=== PATIENT | female | born 1965 | race Caucasian/White ===

== ENCOUNTER 2017-01-22 08:55 | Day surgery (SDC) | payer OTHER ==
[~2017-01-22 08:55] MED LIST: Lactated Ringers 1,000 ML IV SCH; Sodium Chloride 0.9% 10 ML Syringe FLUSH PRN; Sodium Chloride 0.9% 2.5 ML Syringe FLUSH PRN
--- NOTE | 2017-01-22 10:22 | PCM.PREANE ---
Preanesthetic Assessment - Anesthesia/Transfusion/Family Hx Anesthesia History: Prior Anesthesia Without Reaction Family History of Anesthesia Reaction: No Transfusion History: No Prior Transfusion(s) Intubation History: Unknown - Review of Systems General: No Symptoms Pulmonary: No Symptoms Cardiovascular: No Symptoms Gastrointestinal: Other (acid reflux) Neurological: No Symptoms Other: Reports: None - Physical Assessment O2 Sat by Pulse Oximetry: 97 Respiratory Rate: 16 Vital Signs: Last Vital Signs Temp 36.5 C 01/22/17 09:15 Pulse 69 01/22/17 09:15 Resp 16 01/22/17 09:15 BP 145/73 H 01/22/17 09:15 Pulse Ox 97 01/22/17 09:15 Height: 1.63 m Weight: 101.605 kg ASA Class: 2 Mental Status: Alert & Oriented x3 Airway Class: Mallampati = 2 Dentition: Reports: Normal Dentition, Broken Tooth/Teeth (small chips front upper teeth) - Allergies Allergies/Adverse Reactions: Allergies Allergy/AdvReac Type Severity Reaction Status Date / Time No Known Allergies Allergy Verified 10/25/13 08:12 - Blood Blood Available: No - Anesthesia Plan Pre-Op Medication Ordered: None Beta Sonia: Metoprolol Med Last Dose Date: 01/21/17 Med Last Dose Time: 19:00 - Acknowledgements Anesthesia Type Planned: MAC Pt an Appropriate Candidate for the Planned Anesthesia: Yes Alternatives and Risks of Anesthesia Discussed w Pt/Guardian: Yes Pt/Guardian Understands and Agrees with Anesthesia Plan: Yes PreAnesthesia Questionnaire HEENT History: Reports: Other (See Below) Other HEENT History: wears glasses Cardiovascular History: Reports: High Cholesterol, Hypertension Respiratory History: Reports: Other (See Below) Other Respiratory History: "may have sleep apnea" not diagnosed Gastrointestinal History: Reports: GERD SLAT TWISTER History: Reports: Psychiatric History: Reports: Anxiety, Depression Endocrine/Metabolic History: Reports: Obesity/BMI 30+ Hematologic History: Reports: Anemia - Past Surgical History Head Surgeries/Procedures: Reports: None Dermatological Surgical History: Reports: Other (See Below) (bilateral varicose veins stripping (lower extremities)) - SUBSTANCE USE Smoking Status *Q: Former Smoker Recreational Drug Use History: No - HOME MEDS Home Medications: Home Meds Aspirin [Carver Aspirin] 81 mg PO DAILY 01/20/17 [History] Citalopram Hydrobromide [Celexa] 40 mg PO DAILY 01/20/17 [History] Hydrochlorothiazide 25 mg PO DAILY 01/20/17 [History] Iron Polysaccharide Complex [Poly-Iron] 150 mg PO ASDIRECTED 01/20/17 [History] Metoprolol Succinate 50 mg PO BEDTIME 01/20/17 [History] Omeprazole 20 mg PO DAILY 01/20/17 [History] Potassium Chloride 20 meq PO DAILY 01/20/17 [History] Pravastatin Sodium [Pravachol] 20 mg PO DAILY 01/20/17 [History] buPROPion HCl [Wellbutrin Xl] 150 mg PO DAILY 01/20/17 [History] - CURRENT (IN HOUSE) MEDS Current Meds: Current Medications Lactated Ringer's (Ringers, Lactated) 1,000 mls @ 125 mls/hr IV ASDIRECTED [facility] Last Admin: 01/22/17 09:18 Dose: 125 mls/hr Sodium Chloride (Saline Flush) 10 ml FLUSH ASDIRECTED PRN PRN Reason: Keep Vein Open Sodium Chloride (Saline Flush) 2.5 ml FLUSH ASDIRECTED PRN PRN Reason: Keep Vein Open
[2017-01-22] MEDS ORDERED: Ondansetron 4 MG/2 ML SDV ONE (15:12)
[2017-01-22] MEDS ORDERED: Propofol 200 MG/20 ML SDV ONE (15:13)
[2017-01-22] MEDS ORDERED: fentaNYL 100 MCG/2 ML SDV ONE (15:13)
[2017-01-22] MEDS ORDERED: Midazolam 1 MG/ML 2 ML SDV ONE (15:13)
--- NOTE | 2017-01-22 16:30 | PCM.OPNOTE ---
- General Post-Op/Procedure Note Date of Surgery/Procedure: 01/22/17 Operative Procedure(s): Colonoscopy and EGD Findings: Hiatal hernia, gastric polyps. Colon polyp @ 40 cm that was ~5 mm in size. 1 polyp in distal sigmoid, 1 polyp in rectum. Pre Op Diagnosis: Microcytic anemia, gerd Post-Op Diagnosis: See findings Anesthesia Technique: MAC Primary Surgeon: Bryanna Mccray Condition: Good
--- NOTE | 2017-01-22 16:32 | PCM.OPNOTE ---
- General Post-Op/Procedure Note Date of Surgery/Procedure: 01/22/17 Condition: Good
--- NOTE | 2017-01-22 22:16 | OR ---
SURGEON: BRYANNA MCCRAY MD DATE OF PROCEDURE: 01/22/2017 PREOPERATIVE DIAGNOSES: Gastroesophageal reflux disease, iron deficiency anemia. POSTOPERATIVE DIAGNOSES: 1. Hiatal hernia. 2. Gastric polyps. 3. Descending colon polyp. 4. Sigmoid colon polyp. 5. Rectal polyp. PROCEDURE PERFORMED: Diagnostic EGD and colonoscopy. ENDOSCOPIST: Dr. Bryanna Mccray. INSTRUMENT USED: Olympus endoscope and Olympus colonoscope. ANESTHESIA: MAC. EXTENT OF EXAM: To the second portion of duodenum, to the cecum. PREPARATION: Fair. LIMITATIONS: None. INDICATION FOR EXAMINATION: The patient is a 52-year-old female, who has microcytic anemia. She has a longstanding history of GERD, that is well controlled on PPIs. She has never had an EGD or colonoscope. She was seen by her primary care provider for further workup. The patient and I discussed both procedures as well as expected perioperative course. We discussed the risks, including bleeding, infection, or damage to surrounding structures, including perforation. The patient verbalized understanding and wishes to proceed. PROCEDURE IN DETAIL: The patient was brought to the endoscopy suite and placed in a beach chair position. A time-out was completed verifying the patient's name, age, date of , allergies, and procedure to be performed. A bite block was placed in the patient's mouth and monitored anesthesia care induced. Continuous oxygen was provided via nasal cannula throughout the procedure. After adequate sedation was achieved, a well lubricated endoscope was placed down the patient's mouth and advanced under direct visualization to the second portion of duodenum. This appeared normal and a photograph was taken. The patient was found to have a normal appearing duodenal bulb. The gastric mucosa was covered and hyperplastic polyps. The pylorus appeared normal. The esophageal hiatus showed a type 1 hiatal hernia. Biopsies were taken of the gastric body, fundus, antrum and one of the gastric polyps. The scope was then brought into the distal esophagus and a photograph was taken of the hiatal hernia sac. This appeared normal with no evidence of inflammation. The distal esophagus did not appear to have any esophagitis either. The remainder of the esophagus was free of pathology. The scope was then removed from the patient and this part of procedure was terminated. The patient was placed in the left lateral decubitus position. A digital rectal exam was performed which was normal. A well lubricated colonoscope was inserted into the rectum and advanced under direct visualization to the level of cecum. The cecum was identified by both visual and anatomic landmarks. Due to looping of the scope more proximally, I did not retroflex the scope within the cecum. The scope was then removed, it was fully pulled back while examining the color, texture, anatomy, and integrity of the mucosa from the cecum to the anal canal. Due to insufflation the patient had small amount of petechial bleeding around the proximal ascending colon. This appeared new and not chronic. The patient was found to have an approximately 5 mm polyp within the descending colon. This was removed using a hot snare forceps. The patient had a small sessile polyp within the distal sigmoid colon and the rectum, both were removed using cold biopsy forceps. The scope was brought into the rectum and retroflexed to allow visualization of the anal canal opening, this appeared normal and a photograph was taken. The scope was straightened out and removed from the patient. The cecum to anus time was over 6 minutes. The patient tolerated the procedure well and was taken to PACU in stable condition. ENDOSCOPIC DIAGNOSES: 1. Hiatal hernia. 2. Gastric polyps. 3. Descending colon polyp. 4. Sigmoid colon polyp. 5. Rectal polyp. RECOMMENDATIONS: Follow up in clinic in 2 weeks. SUSANNE TYSON /[id number]
== END 2017-01-22 17:00 | disposition home or self-care (01) ==
LOC: MW.SDS 08:55
PROVIDERS: ATTEND Surgery
DX: D12.4 Benign neoplasm of descending colon (principal); D12.5 Benign neoplasm of sigmoid colon; K62.1 Rectal polyp; K31.7 Polyp of stomach and duodenum; K44.9 Diaphragmatic hernia without obstruction or gangrene; F32.9 Major depressive disorder, single episode, unspecified; K21.9 Gastro-esophageal reflux disease without esophagitis; E78.00 Pure hypercholesterolemia, unspecified; I10 Essential (primary) hypertension; Z79.82 Long term (current) use of aspirin; Z79.899 Other long term (current) drug therapy; Z98.890 Other specified postprocedural states; Z87.891 Personal history of nicotine dependence
CPT/HCPCS: 43239; 45380; 45385; J2250; J2405; J3010; J7120; 00740; 88305; 88312; J2704

== ENCOUNTER 2023-03-04 10:04 | Day surgery (SDC) | payer OTHER ==
[~2023-03-04 10:04] MED LIST changes: +Sodium Chloride 0.9% 20 ML SDV IV PRN
[2023-03-04] MEDS ORDERED: Propofol 200 MG/20 ML SDV ONE (11:17)
[2023-03-04] MEDS ORDERED: Lidocaine 2% 5 ML SDV ONE (11:31)
== END 2023-03-04 12:40 | disposition home or self-care (01) ==
LOC: MW.SDS 10:04
PROVIDERS: ATTEND Surgery
DX: Z12.11 Encounter for screening for malignant neoplasm of colon (principal); D12.3 Benign neoplasm of transverse colon; K63.5 Polyp of colon; I10 Essential (primary) hypertension; F32.A Depression, unspecified; Z79.82 Long term (current) use of aspirin; Z79.899 Other long term (current) drug therapy; Z87.891 Personal history of nicotine dependence
CPT/HCPCS: 45380; J2704; J7120; J3490